=== PATIENT | male | born 1955 | race Caucasian/White ===

== ENCOUNTER → 2016-09-11 | Outpatient (CLI) | payer BC ==
[2016-09-11 18:13] LABS: AST/SGOT 17 U/L (15-37); BLOOD UREA NITROGEN 19 mg/dl (7-18); BUN/CREATININE RATIO 22.4 (10-20); CALCIUM 9.2 mg/dl (8.5-10.1); CARBON DIOXIDE 25 mmol/L (21-32); CHLORIDE 106 mmol/L (98-107); CHOLESTEROL 181 mg/dl (0-200); CREATININE 0.83 mg/dl (0.60-1.40); GLUCOSE 105 mg/dl (70-99); POTASSIUM 3.9 mmol/L (3.5-5.1); SODIUM 141 mmol/L (136-145)
[2016-09-11 18:18] LABS: ALT/SGPT 33 U/L (12-78); CHOLESTEROL/HDL RATIO 3.8; HDL CHOLESTEROL 48 mg/dl; LDL CHOLESTEROL CALCULATED 98 mg/dl; TRIGLYCERIDES 174 mg/dl (0-150); VERY LOW DENSITY LIPOPROT CALC 35 mg/dl
[2016-09-12 06:25] LABS: ESTIMATED AVERAGE GLUCOSE 126 mg/dl; HA1C FLAG Normal (Normal)
== END | disposition home or self-care (01) ==
LOC: C.LABMFLN 13:49
PROVIDERS: ATTEND Family Medicine
DX: E11.40 Type 2 diabetes mellitus with diabetic neuropathy, unspecified (principal); Z12.5 Encounter for screening for malignant neoplasm of prostate; I10 Essential (primary) hypertension; E78.00 Pure hypercholesterolemia, unspecified

== ENCOUNTER → 2016-12-26 | Outpatient (CLI) | payer BC ==
[2016-12-26 13:48] LABS: ESTIMATED AVERAGE GLUCOSE 128 mg/dl; HA1C FLAG Normal (Normal)
== END | disposition home or self-care (01) ==
LOC: C.LABMFLN 09:42
PROVIDERS: ATTEND Family Medicine
DX: E11.40 Type 2 diabetes mellitus with diabetic neuropathy, unspecified (principal)

== ENCOUNTER → 2017-03-28 | Outpatient (CLI) | payer BC ==
[2017-03-28 13:22] LABS: ALT/SGPT 36 U/L (12-78); AST/SGOT 22 U/L (15-37); BLOOD UREA NITROGEN 16 mg/dl (7-18); BUN/CREATININE RATIO 15.7 (10-20); CALCIUM 9.1 mg/dl (8.5-10.1); CARBON DIOXIDE 29 mmol/L (21-32); CHLORIDE 104 mmol/L (98-107); GLUCOSE 133 mg/dl (70-99); POTASSIUM 4.2 mmol/L (3.5-5.1); SODIUM 139 mmol/L (136-145)
[2017-03-28 13:23] LABS: ESTIMATED AVERAGE GLUCOSE 134 mg/dl; HA1C FLAG Normal (Normal)
[2017-03-28 13:25] LABS: CHOLESTEROL 193 mg/dl (0-200); CHOLESTEROL/HDL RATIO 4.3; HDL CHOLESTEROL 45 mg/dl; LDL CHOLESTEROL CALCULATED 99 mg/dl; TRIGLYCERIDES 245 mg/dl (0-150); VERY LOW DENSITY LIPOPROT CALC 49 mg/dl
== END | disposition home or self-care (01) ==
LOC: C.LABMFLN 09:11
PROVIDERS: ATTEND Family Medicine
DX: I10 Essential (primary) hypertension (principal); E78.00 Pure hypercholesterolemia, unspecified; E11.40 Type 2 diabetes mellitus with diabetic neuropathy, unspecified

== ENCOUNTER → 2017-04-16 | Outpatient (CLI) | payer BC | END | disposition home or self-care (01) | LOC: C.LABMFLN 11:34 | PROVIDERS: ATTEND Family Medicine | DX: Z68.36 Body mass index [BMI] 36.0-36.9, adult (principal) ==

== ENCOUNTER → 2017-07-10 | Outpatient (CLI) | payer BC ==
[2017-07-10 17:59] LABS: ALT/SGPT 51 U/L (12-78); BLOOD UREA NITROGEN 16 mg/dl (7-18); CALCIUM 9.6 mg/dl (8.5-10.1); CARBON DIOXIDE 29 mmol/L (21-32); CHLORIDE 105 mmol/L (98-107); CHOLESTEROL 165 mg/dl (0-200); CREATININE 0.98 mg/dl (0.60-1.40); GLUCOSE 121 mg/dl (70-99); POTASSIUM 4.2 mmol/L (3.5-5.1); SODIUM 139 mmol/L (136-145)
[2017-07-10 18:02] LABS: ALB/GLOB RATIO 1.1 (0.9-2); ALKALINE PHOSPHATASE 46 U/L (45-117); AST/SGOT 20 U/L (15-37); CHOLESTEROL/HDL RATIO 3.3; HDL CHOLESTEROL 50 mg/dl; LDL CHOLESTEROL CALCULATED 91 mg/dl; TRIGLYCERIDES 122 mg/dl (0-150); VERY LOW DENSITY LIPOPROT CALC 24 mg/dl
[2017-07-11 07:52] LABS: ESTIMATED AVERAGE GLUCOSE 128 mg/dl; HA1C FLAG Normal (Normal)
== END | disposition home or self-care (01) ==
LOC: C.LABMFLN 13:36
PROVIDERS: ATTEND Family Medicine
DX: Z00.00 Encounter for general adult medical examination without abnormal findings (principal); I10 Essential (primary) hypertension; E78.00 Pure hypercholesterolemia, unspecified; E11.40 Type 2 diabetes mellitus with diabetic neuropathy, unspecified

== ENCOUNTER → 2017-07-11 | Outpatient (CLI) | payer BC ==
[2017-07-11 16:14] LABS: RATIO 3.9 mcg/mg (0-30.0)
== END | disposition home or self-care (01) ==
LOC: C.LABMFLN 10:05
PROVIDERS: ATTEND Family Medicine
DX: Z00.00 Encounter for general adult medical examination without abnormal findings (principal); I10 Essential (primary) hypertension; E78.00 Pure hypercholesterolemia, unspecified; E11.40 Type 2 diabetes mellitus with diabetic neuropathy, unspecified

== ENCOUNTER → 2017-10-17 | Outpatient (CLI) | payer BC ==
[2017-10-18 06:43] LABS: HEMOGLOBIN A1C 6.2 % (4.5-5.6)
== END | disposition home or self-care (01) ==
LOC: C.LABMFLN 10:50
PROVIDERS: ATTEND Family Medicine
DX: E11.40 Type 2 diabetes mellitus with diabetic neuropathy, unspecified (principal)

== ENCOUNTER 2021-06-21 09:21 | Inpatient (IN) ==
--- NOTE | 2021-06-17 15:07 | Anesthesiology Consultation ---
Date of Service June 17, 2021 Assessment & Plan (1) Encounter for pre-operative examination: - COVID screening: Per assessment on 06/15: Travel screen negative, no known COVID-19 positive contacts or current COVID-19 related symptoms. Patient vaccin ated. Preop Covid test 06/17 ([place]) is pending. - Check [facility]G AM DOS Chart Review Chart Review: Acceptable Risk for Surgery and Patient NOT seen in Pre Admission Testing History Surgery Operation Date: 06/21/21 11:10 Proposed Procedures p Laparoscopic Robotic Assisted Radical Retropubic Prostatectomy, Possible Open, Possible Pelvic Lymph Node Dissection, Possible Suprapubic Tube Placement - Neto Davenport MD Height/Weight Height: 5 ft 11.5 in Weight: 97.976 kg Allergies Allergy/AdvReac Type Severity Reaction Status Date / Time enalaprilat [From Vasotec] Allergy Severe Cough, Verified 06/21/21 09:50 hives ampicillin Allergy Intermediate Body hives Verified 06/21/21 09:50 atorvastatin [From Lipitor] AdvReac Mild Elevated Verified 06/21/21 09:50 CPK simvastatin [From Zocor] AdvReac Mild Muscle Pain Verified 06/21/21 09:50 Medications Home Medications Medication Instructions Recorded Confirmed Last Taken lancets 28 gauge (FreeStyle #25 ea 02/18/19 05/23/21 Unknown Lancets) magnesium oxide 400 mg PO TID cap 02/18/19 06/15/21 06/20/21 08:00 kgijwryg-oob-syfuz acid 300 1 tab PO QAM 02/18/19 06/21/21 06/20/21 08:00 mcg-lycopene 600 mcg-lutein 300 mcg tablet (Centrum Silver Men) cholecalciferol (vitamin D3) 50 2,000 units PO QPM 08/04/19 06/21/21 06/20/21 08:00 mcg (2,000 unit) chewable tablet ondansetron 8 mg disintegrating 8 mg PO TID PRN #90 tab 08/04/19 06/21/21 Unknown tablet hyoscyamine sulfate 0.125 mg 0.125 mg PO QID PRN #20 tab 05/13/21 06/21/21 06/20/21 08:00 disintegrating tablet potassium chloride 10 mEq 10 meq PO BID #360 tab 05/13/21 06/15/21 06/20/21 20:00 tablet,extended release amlodipine 2.5 mg tablet 2.5 mg PO QAM tab 05/23/21 06/21/21 06/21/21 08:30 Marijuana Card 1 inh INHALATION TID PRN 06/15/21 06/15/21 Unknown escitalopram oxalate 5 mg tablet 5 mg PO QAM 06/15/21 06/21/21 06/21/21 08:30 furosemide 20 mg tablet 20 mg PO QAM 06/15/21 06/21/21 06/20/21 08:00 losartan 100 mg tablet 100 mg PO QAM 06/15/21 06/21/21 06/20/21 08:00 lovastatin 40 mg tablet 80 mg PO HS 06/15/21 06/15/21 06/20/21 20:00 omeprazole 40 mg capsule,delayed 80 mg PO BID 06/15/21 06/21/21 06/21/21 08:30 release sucralfate 1 gram tablet 1 g PO QAM 06/15/21 06/21/21 06/20/21 20:00 trazodone 50 mg tablet 100 mg PO HS 06/15/21 06/15/21 Unknown Active Medications Generic Name Dose Route Start Last Admin Trade Name Freq PRN Reason Stop Dose Admin Heparin Sodium (Porcine) 5,000 units 06/21/21 06:00 06/21/21 10:10 Heparin Sod 5,000 Unit/0.5 Ml Vial SC 06/21/21 18:00 5,000 units PREOP ISSA Administration Lactated Ringer's 1,000 mls @ 15 mls/hr 06/21/21 06:00 06/21/21 10:09 Lr IV 06/22/21 05:59 15 mls/hr .Q24H ISSA Administration Lactated Ringer's 1,000 mls @ 15 mls/hr 06/21/21 06:00 06/21/21 10:10 Lr IV 06/21/21 18:00 Not Given .Q24H ISSA Past Medical History Medical History Adjustment disorder with depressed mood Back pain Benign essential hypertension Benign prostatic hyperplasia Carpal tunnel syndrome Cervicalgia Chronic GERD Controlled Chronic headaches Controlled type 2 diabetes mellitus with diabetic neuropathy Diet controlled Hypercholesterolemia Prostate cancer Past Family History Family History Father Type 2 diabetes mellitus Renal failure Coronary heart disease Colorectal cancer Myocardial infarction Mother Osteoarthritis Denies family history of Ovarian cancer Prostate cancer Breast cancer Past Surgical History Surgical History H/O colonoscopy 2020 H/O oral surgery H/O uvulectomy H/O: vasectomy History of carpal tunnel surgery R/L History of decompression of ulnar nerve Right Hx of cholecystectomy Status post tendon reattachment LLE Social History Smoking Status: Former smoker tobacco type: pipe and cigars Do You Dip or Chew Tobacco: No Smoking End Date: Intermittent cigarette use, Quit pipe 40 years ago Hx Alcohol Use: Yes Alcohol type: beer alcohol intake frequency: holidays/special occasions only Hx Substance Use: Yes substance use type: marijuana (Medical marijuana (inhalation) TID PRN ) Physical Exam Vital Signs Last Vital Signs Temp 37.2 C 06/21/21 09:41 Pulse 84 06/21/21 09:41 Resp 20 06/21/21 09:41 BP 147/91 H 06/21/21 09:41 Pulse Ox 96 06/21/21 09:41 Testing Laboratory Results 06/21/21 10:03 POC Glucose 122 H 04/30/21 WBC 6.61 H/H 12.8/37.9 PLATELETS 210 05/13/21 SODIUM 142 POTASSIUM 4.2 CHLORIDE 104 CO2 28 BUN 19 CREATININE 1.2 GLUCOSE 87
[~2021-06-21 09:21] MED LIST: HEPARIN SOD 5,000 UNIT/0.5 ML VIAL SC SCH; LACTATED RINGER'S 1,000 ML IV SCH; LR 15ML/HR IV SCH; ceFAZolin 2000MG 2,000 MG/15 ML SYR IV SCH
[2021-06-21] MEDS ORDERED: MIDAZOLAM HCL 1 MG/ML 2ML VIAL ONE (10:16)
[2021-06-21] MEDS ORDERED: fentaNYL citrate 100 MCG/2 ML VIAL ONE ×2 (10:16→13:46)
--- NOTE | 2021-06-21 10:56 | History & Physical Bridge Note ---
Date of Service June 21, 2021 History & Physical Bridge Note I have examined the patient, reviewed the History & Physical and in the interval since the performance of the History & Physical I have noted the following changes of clinical significance: no changes noted
[2021-06-21] MEDS ORDERED: KETOROLAC 30 MG/ML VIAL IV PRN (11:01)
[2021-06-21] MEDS ORDERED: ONDANSETRON INJ 2 MG/ML 2 ML VIAL IV PRN (11:01)
[2021-06-21] MEDS ORDERED: HYDROmorphone INJ 1 MG/ML SYRINGE IV PRN (11:01)
[2021-06-21] MEDS ORDERED: LABETALOL HCL IV 5 MG/ML 20ML IV PRN (11:01)
[2021-06-21] MEDS ORDERED: BUPIVACAINE 0.5 % 5 MG/1 ML MPF 30ML VIAL ONE (11:01)
[2021-06-21] MEDS ORDERED: ATROPINE SULFATE 0.1 MG/ML 10ML SYR IV PRN (11:01)
[2021-06-21] MEDS ORDERED: BELLADONNA/OPIUM SUPP 60 MG SUPP PR ONE ×2 (11:49→11:54)
[2021-06-21] MEDS ORDERED: HYDROmorphone INJ 2 MG/ML SYR/VIAL ONE (11:53)
[2021-06-21] MEDS ORDERED: ePHEDrine sulfate 50 MG/ML SYR ONE (11:54)
[2021-06-21] MEDS ORDERED: ONDANSETRON INJ 2 MG/ML 2 ML VIAL ONE (11:54)
[2021-06-21] MEDS ORDERED: DEXAMETHASONE SOD INJ 4 MG/ML VIAL ONE (11:54)
[2021-06-21] MEDS ORDERED: PHENYLEPHRINE 100MCG/ML 5ML SYR ONE (11:54)
[2021-06-21] MEDS ORDERED: ROCURONIUM BROMIDE 10 MG/ML 5 ML VIAL IV ONE (11:54)
[2021-06-21] MEDS ORDERED: PROPOFOL IV EMULSION 10 MG/ML 20 ML VIAL IV ONE ×3 (12:25→13:47)
[2021-06-21] MEDS ORDERED: LABETALOL HCL IV 5 MG/ML 20ML IV ONE (12:33)
[2021-06-21] MEDS ORDERED: LIDOCAINE 2% 2 ML VIAL/AMP(20MG/ML) INFIL ONE (13:48)
[2021-06-21] MEDS ORDERED: LARYING-O-JET KIT (LTA) ONE (13:48)
[2021-06-21] MEDS ORDERED: FLOSEAL HEMOSTATIC MATRIX 10ML TOP ONE (14:47)
[2021-06-21] MEDS ORDERED: NEOSTIGMINE METHYLSULFATE 1 MG/ML 10ML VIAL ONE (14:52)
[2021-06-21] MEDS ORDERED: GLYCOPYRROLATE 0.2 MG/ML VIAL ONE (14:52)
--- NOTE | 2021-06-21 15:18 | Operative Report ---
[facility] Post Operative Report Pre & Post Diagnosis Operation Date: 06/21/21 11:10 Pre-Op Diagnosis: Prostate Cancer Post-Op Diagnosis: Prostate Cancer I identified the patient and participated in the time-out.: Yes Procedure Operation Date: 06/21/21 11:10 Actual Procedures p Laparoscopic Robotic Assisted Radical Retropubic Prostatectomy, Pelvic Lymph Node Dissection(Not Applicable) - Neto Davenport MD Surgeon Lenny Davenport MD Junior Database Administrator Denice Viveros Estimated Blood Loss 100 Findings Consistent with Post-Op Diagnosis Specimens 1. Periprostatic fat 2. Left pelvic lymph nodes 3. Right pelvic lymph nodes 4. Prostate and seminal vesicles Description of Procedure The patient was identified in the preoperative holding area, appropriate informed consents were reviewed and completed, and he was transported to the operating suite. Subcutaneous heparin was administered in the pre-operative holding area. Upon arrival in the operating suite, he received appropriate antibiotics and general anesthesia. He was positioned in dorsal lithotomy, a B&O suppository was inserted after digital rectal exam, and he was prepped and draped in standard fashion. A Kauffman catheter was inserted in the sterile field. A Veress needle was passed per umbilicus with uniform insufflation of the abdomen to 15mmHg. He was placed in steep Trendelenburg position. A periumbilical incision was then made to accommodate a 12mm Visiport with 10mm 0degree laparoscope. Inspection of the abdomen was carried out, and there was no evidence of traumatic entry or injury secondary to the Veress needle. After confirming a clear anterior abdominal wall, ports were subsequently placed in standard robotic prostatectomy fashion without incident. To begin the robotic portion of the case, the left lateral aspect of the sigmoid was mobilized off of the left pelvic side wall to allow the pouch of Sukhwinder to be appropriately visualized. I then made an incision in the pouch of Sukhwinder, overlying the seminal vesicles. Both SVs as well as the ampullae of the vasa were entirely dissected, with the vasa transected 3cm from the prostate. The medial umbilical ligaments were then controlled with bipolar electrocautery just inferior to the umbilicus. Following cauterization, they were divided utilizing monopolar cautery. A peritoneal incision was carried from this location to the medial aspect of the internal inguinal rings bilaterally with care to avoid opening through the ring. This incision was concluded when the vas deferens was reached. Dissection of the bladder and prostate off of the posterior aspect of the pubic arch was completed allowing full visualization of the prostate. The fat overlying the prostate was removed en bloc and passed off the table as a specimen labeled "periprostatic fat". The endopelvic fascia was cleared during this portion of the procedure, and subsequently opened - first on the right and then the left. The incision through the endopelvic fascia began near the prostate-bladder junction and was carried to the apex with extreme care to preserve all lateral levator musculature as well as the periurethral musculature and sphincter complex. I additionally preserved the puboprostatic ligaments. I then controlled the DVC with a 3-0 V-lock suture in overlapping/figure of 8 fashion. The lymph node dissection was then conducted. External iliac vessels were identified on the pelvic side wall. The packet of fat and lymphatic tissue that resides just under the iliac vein was elevated and off of the vein with a split and roll technique. The packet was dissected laterally to the circumflex vein and distally to the obturator nerve which was preserved. The proximal aspect of the packet was carried towards the bifurcation of the iliac vessels. A combination of monopolar and bipolar cautery were used to assist with control. After completing the dissection on both sides, the packets were collected and passed off of the table as specimens labeled "pelvic lymph nodes". My attention then returned to the prostate, with identification of the bladder neck aided by gentle traction on the Kauffman catheter and lateral to medial pressure at the presumed level of the bladder neck with the robotic instruments. An anterior cystotomy was made, the Kauffman balloon deflated and the catheter guided through the incision to allow anterior retraction. I attempted to preserve maximal bladder neck musculature as I circumferentially dissected around the bladder neck. After incision through the posterior aspect of the mucosa, the dissection was carried through detrusor muscle until the bilateral ampullae of the vasa were identified. The previously dissected vasa and SVs were brought through the incision and used to elevated the prostate anteriorly. A posterior plane behind the prostate was then developed - splitting Denonvilliers's fascia. This dissection was carried as far as possible towards the apex as well as far as possible laterally. An incision in the lateral prostatic fascia was then made bilaterally to facilitate control of the vascular pedicles and preservation of the nerve bundles. Vasculature running along the posterior/lateral aspect of the prostate was preserved as well as the tissue containing the nerves. The pedicles were then controlled with a series of Weck clips. The apical attachments of the prostate were remaining at that stage. The DVC was divided after control with bipolar cautery over the prostate. Continuous inspection from anterior and lateral views allowed me to closely follow the apical contour of the prostate and maximally preserve urethral length and tissue. The prostate was entirely freed at that point, and collected in an EndoCatch bag before being moved out of the field of vision. Hemostasis was confirmed and anastomosis of the bladder and urethra was completed utilizing a double armed V- Lock stitch. A new Kauffman catheter was inserted and the anastomosis tested with irrigation. There was no evidence of leak. A nicole style stitch was placed bilaterally to functionally marsupialize the area of the lymph node dissection. The robot was undocked, the specimen extracted through expansion of the madina- umbilical camera port. The fascia was closed with a series of 0-PDS figure of 8 stitches. The right assistant purchasing manager port was closed in two layers - with a figure of 8 0-Vicryl to reapproximate the fascia followed by 4-0 Monocryl to close the skin. Monocryl was used to close all other skin incisions. All wounds were dressed with Dermabond. The case was concluded and the patient taken to the PACU in stable condition. Denice Viveros assisted from incision to closure. I attest to the content of the Intraoperative Record and any orders documented therein. Any exceptions are noted below.
--- NOTE | 2021-06-21 16:01 | Anesthesiology Progress Note ---
Date of Service June 21, 2021 Anesthesia Post Procedure Vital Signs Vital Signs: Temp Pulse Pulse Resp BP Pulse Ox 06/21/21 15:55 68 15 126/80 96 06/21/21 15:45 65 16 138/86 100 06/21/21 15:35 66 20 137/90 100 06/21/21 15:25 66 17 131/86 99 06/21/21 15:17 36.7 C 65 21 188/96 H 100 06/21/21 09:41 37.2 C 84 20 147/91 H 96 Pain Intensity Abdomen: Pain Intensity: 3 Transfer of Care Handoff Completed per policy Notes Mental Status: alert / awake / arousable Patient Amnestic to Procedure: Yes Nausea / Vomiting: adequately controlled Pain: adequately controlled Airway Patency, RR, SpO2: stable & adequate BP & HR: stable & adequate Hydration State: stable & adequate Anesthetic Complications: no major complications apparent
[2021-06-21] MEDS: LACTATED RINGER'S 1,000 ML IV SCH (16:30)
[2021-06-21] MEDS ORDERED: ACETAMINOPHEN 325 MG TAB PO PRN (16:48)
[2021-06-21] MEDS ORDERED: oxyCODONE HCL IR 5 MG TAB (IMMEDIATE RELEASE) PO PRN (16:48)
[2021-06-21] MEDS ORDERED: PHARMACY GLYCEMIC MGMT CONSULT PRN (16:48)
[2021-06-21] MEDS ORDERED: MoRPHine SULFATE 2 MG/ML CARP IV PRN ×2 (16:48→18:15)
[2021-06-21] MEDS ORDERED: MoRPHine SULFATE 4 MG/ML 1 ML CARP\\VIAL IV PRN (16:48)
[2021-06-21 16:54] LABS: Basophils # (auto) 0.02 K/uL (0-0.2); Basophils % (auto) 0.2 %; Eosinophils # (auto) 0.01 K/uL (0-0.5); Eosinophils % (auto) 0.1 %; Hemoglobin 14.2 g/dL (14.0-18.0); Immature Granulocytes # (auto) 0.01 K/uL (0.00-0.02); Immature Granulocytes % (auto) 0.1 %; Lymphocytes # (auto) 0.83 K/uL (1.2-3.4); Lymphocytes % (auto) 6.8 %; Mean Corpuscular Hemoglobin 32.9 pg (25-34); Mean Corpuscular Volume 94.9 fL (80-100); Mean Platelet Volume 8.9 fL (7.4-10.4); Monocytes # (auto) 0.11 K/uL (0.11-0.59); Monocytes % (auto) 0.9 %; Neutrophils # (auto) 11.29 K/uL (1.4-6.5); Neutrophils % (auto) 91.9 %; Platelet Count 276 K/uL (130-400); RDW Coefficient of Variation 12.5 % (11.5-14.5); Red Blood Count 4.32 M/uL (4.7-6.1); White Blood Count 12.27 K/uL (4.8-10.8)
[2021-06-21 16:56] LABS: Mean Corpuscular Hgb Conc 34.6 g/dL (32-36)
[2021-06-21 17:14] LABS: BUN Creatinine Ratio 15.2 (10-20); Calcium 9.1 mg/dl (8.5-10.1); Creatinine Clr Calc Pharmacy 82.3 ml/min; Est GFR (African American) 85.1 ml/min; Est GFR (Non-African American) 73.4 ml/min; Potassium 3.7 mmol/L (3.5-5.1)
[2021-06-21] MEDS ORDERED: HYOSCYAMINE SULFATE 0.125 MG TAB PO PRN (19:14)
[2021-06-21] MEDS: oxyCODONE HCL IR 5 MG TAB (IMMEDIATE RELEASE) PO PRN (19:47)
[2021-06-21] MEDS ORDERED: GLUCOSE 10 TABS/TUBE PO PRN (20:15)
[2021-06-21] MEDS ORDERED: DEXTROSE 50% 50 ML SYRINGE IV PRN (20:15)
[2021-06-21] MEDS ORDERED: GLUCAGON FOR INJ 1 MG VIAL IM PRN (20:15)
[2021-06-21] MEDS ORDERED: GLUCOSE 40% GEL 15 GM TUBE PO PRN (20:15)
[2021-06-21] MEDS ORDERED: CARBOHYDRATES FOR HYPOGLYCEMIA PO PRN (20:15)
[2021-06-21] MEDS: PANTOprazole 40 MG TAB PO SCH (21:00)
[2021-06-21] MEDS: ceFAZolin 2000MG 2,000 MG/15 ML SYR IV SCH (21:02)
[2021-06-21] MEDS: traZODone HCL 100 MG TAB PO SCH (21:04)
[2021-06-21] MEDS: POTASSIUM CHLORIDE 10 MEQ TABCR PO SCH (21:04)
[2021-06-21] MEDS: MAGNESIUM OXIDE 400 MG TAB PO SCH (21:05)
[2021-06-21] MEDS: LOVASTATIN 20 MG TAB PO SCH (21:05)
[2021-06-21] MEDS: INSULIN ASPART 100 UNITS/ML 3 ML PEN SC SCH (21:08)
[2021-06-21] MEDS: ONDANSETRON INJ 2 MG/ML 2 ML VIAL IV PRN (21:17)
[2021-06-21] MEDS: HEPARIN SOD 5,000 UNIT/0.5 ML VIAL SQ SCH (21:27)
[2021-06-22] MEDS: LACTATED RINGER'S 1,000 ML IV SCH (00:07)
[2021-06-22] MEDS ORDERED: INSULIN ASPART 100 UNITS/ML 3 ML PEN SC SCH (02:00)
[2021-06-22] MEDS: ceFAZolin 2000MG 2,000 MG/15 ML SYR IV SCH (03:36)
[2021-06-22] MEDS: HEPARIN SOD 5,000 UNIT/0.5 ML VIAL SQ SCH ×2 (09:13→20:53)
[2021-06-22] MEDS: LOSARTAN POTASSIUM 50 MG TAB PO SCH (09:14)
[2021-06-22] MEDS: MAGNESIUM OXIDE 400 MG TAB PO SCH ×3 (09:14→20:55)
[2021-06-22] MEDS: PANTOprazole 40 MG TAB PO SCH ×2 (09:14→20:54)
[2021-06-22] MEDS: SUCRALFATE 1 GM TAB PO SCH (09:14)
[2021-06-22] MEDS: ESCITALOPRAM OXALATE 10 MG TAB PO SCH (09:15)
[2021-06-22] MEDS: CEROVITE ADV FORMULA TAB PO SCH (09:15)
[2021-06-22] MEDS: POTASSIUM CHLORIDE 10 MEQ TABCR PO SCH ×2 (09:15→20:54)
[2021-06-22] MEDS: FUROSEMIDE 20 MG TAB PO SCH (09:15)
[2021-06-22] MEDS: amLODIPine BESYLATE 5 MG TAB PO SCH (09:16)
[2021-06-22] MEDS: INSULIN ASPART 100 UNITS/ML 3 ML PEN SC SCH ×4 (09:18→21:08)
[2021-06-22 09:19] LABS: Basophils # (auto) 0.02 K/uL (0-0.2); Basophils % (auto) 0.2 %; Eosinophils # (auto) 0.02 K/uL (0-0.5); Eosinophils % (auto) 0.2 %; Hematocrit (blood only) 40.1 % (42-52); Hemoglobin 13.5 g/dL (14.0-18.0); Immature Granulocytes # (auto) 0.02 K/uL (0.00-0.02); Immature Granulocytes % (auto) 0.2 %; Lymphocytes # (auto) 0.71 K/uL (1.2-3.4); Lymphocytes % (auto) 6.3 %; Mean Corpuscular Hgb Conc 33.7 g/dL (32-36); Mean Platelet Volume 9.2 fL (7.4-10.4); Monocytes # (auto) 1.69 K/uL (0.11-0.59); Neutrophils # (auto) 8.84 K/uL (1.4-6.5); Neutrophils % (auto) 78.1 %; Platelet Count 269 K/uL (130-400); RDW Coefficient of Variation 12.6 % (11.5-14.5); RDW Standard Deviation 43.8 fL (36.4-46.3); Red Blood Count 4.22 M/uL (4.7-6.1)
[2021-06-22 09:47] LABS: BUN Creatinine Ratio 13.4 (10-20); Calcium 9.2 mg/dl (8.5-10.1); Creatinine Clr Calc Pharmacy 90.1 ml/min; Est GFR (African American) 94.9 ml/min; Est GFR (Non-African American) 81.9 ml/min; Potassium 3.5 mmol/L (3.5-5.1)
--- NOTE | 2021-06-22 09:52 | Pharmacy Report ---
Pharmacy Glycemic Short Note 2 - Date of Service June 22, 2021 - Glycemic Short BSG Results (Last 24 hours): 06/21/21 06/21/21 06/21/21 10:03 15:29 16:38 Glucose 175 H POC Glucose 122 H 151 H 06/21/21 06/22/21 06/22/21 20:58 08:01 08:21 Glucose 136 H POC Glucose 141 H 132 H OUTPATIENT ANTIDIABETIC REGIMEN: * none * A1c = 6% (03/01/21) ASSESSMENT: * Jose is a 66 yo T2DM POD #1 s/p p Laparoscopic Robotic Assisted Radical Retropubic Prostatectomy * He has demonstrated excellent glycemic control with little to no insulin * Currently ordered Novolog CF/CR based on weight and stress of 2. Will continue for now but may need to loosen this carb ratio. PLAN FOR INPATIENT GLYCEMIC CONTROL: * Hold outpatient oral diabetes medications * Basal insulin * none * Bolus insulin * NovoLog per scale ACHS or Q6hrs while NPO * Goal Range: Low 110 mg/dL - High 140 mg/dL * Correction Factor: 25 mg/dL/unit * Nutritional / Prandial insulin per carb ratio of 1 unit per 8 grams CHO consumed PLAN FOR DISCHARGE: * A1c adequately controlled with out medication therapy
--- NOTE | 2021-06-22 12:00 | Urology Progress Note ---
Date of Service June 22, 2021 Assessment & Plan (1) Prostate cancer: Plan: Postop day #1 status post robotic prostatectomy Doing very well overall Plan to continue ambulation advance diet this morning, likely discharge home this afternoon if he continues to progress appropriately Admission and Anticipated Discharge Date Admission Date: June 21, 2021 Subjective No major issues overnight He reports that he feels well and has minimal pain this morning Physical Exam Physical Exam: Incisions appropriate, urine clear Results & Data ([facility]) Vital Signs (Past 12 Hours) Vital Signs Temp Pulse Resp BP Pulse Ox 06/22/21 11:55 37.2 C 83 16 121/75 97 06/22/21 07:42 36.8 C 76 16 131/72 95 PG Care Time/CCT Total # of Minutes Spent Total Time Spent with Patient: Total time spent is greater than 50% in coordination of care (as documented) at patient's floor/unit and/or counseling patient: Coding Level of Care Code 44538 Subseq Hosp Care Lvl 2 Diagnoses Prostate cancer C61
--- NOTE | 2021-06-22 12:28 | Discharge Summary ---
Date of Service June 22, 2021 Admission HPI Per Admitting Provider See H&P Admission Exam Per Admitting Provider See H&P Principal Diagnosis Prostate Cancer Discharge Exam Constitutional well developed and well nourished; no acute distress and not ill appearing Respiratory normal respiratory effort and able to speak in complete sentences; no respiratory distress and no audible wheezes Gastrointestinal (Abdomen) Inspection/Auscultation: abdomen normal to inspection; abdomen not distended Percussion/Palpation: abdomen soft; no guarding Skin Incisions appropriate, well-approximated without erythema, warmth, or drainage. Psychiatric Orientation: alert, oriented x 3 and cooperative Affect: euthymic affect Genitourinary [place] catheter intact, patent, draining clear yellow urine. Discharge Data Allergies Allergy/AdvReac Type Severity Reaction Status Date / Time enalaprilat [From Vasotec] Allergy Severe Cough, Verified 06/21/21 09:50 hives ampicillin Allergy Intermediate Body hives Verified 06/21/21 09:50 atorvastatin [From Lipitor] AdvReac Mild Elevated Verified 06/21/21 09:50 CPK simvastatin [From Zocor] AdvReac Mild Muscle Pain Verified 06/21/21 09:50 Procedures Performed Operation Date: 06/21/21 11:10 Actual Procedures p Laparoscopic Robotic Assisted Radical Retropubic Prostatectomy, Pelvic Lymph Node Dissection(Not Applicable) - Neto Davenport MD Hospital Course (1) Prostate cancer: Patient admitted status post robotic laparoscopic-assisted radical retropubic prostatectomy with bilateral pelvic lymph node dissection on 06/21/[address] Davenport. No complications post procedure. He was seen POD#1, clinically progressing however had some pain, nausea, and decreased appetite. Patient was seen POD#2 with significant improvement in his symptoms. Vital signs and post-op labs appropriate and as expected. Discharged home in stable condition POD #2, home with cub[place] catheter. Total Time Total Time Spent Total Time Spent (In Minutes): 10 Discharge Plan Discharge Items Patient Disposition: Home - Self-Care Reason For Visit: Prostate Cancer Discharge Diagnosis: prostate cancer Condition on Discharge: Good Activity: Per Instructions section Lifting: No more than 25 pounds Bathing Comment: No tub baths or soaking, okay to shower tomorrow Sexual Activity: Wait until after follow-up appointment Exercise/Sports: Wait until after follow-up appointment Driving/Machine Use: Do not drive while taking narcotic pain medication Non-emergency contact: Surgeon and Urologist Call non-emergency contact if: your pain is not controlled, your temperature is above 101, your wound has increased redness, your wound has increased drainage and your wound pain has increased Follow-up/Referrals: Neto Davenport MD [Physician] - 07/04/21 2:00 pm Hans Alston MD [Primary Care Provider] - [facility],Nurse [FAKE FOR SCHEDULES] - 06/27/21 9:30 am Diet: Carb Consistent or DM2 Addtl Attending Provider Instructions: Please take all medications as prescribed and keep all follow-ups as scheduled. Please call our office at [phone] with any questions, concerns or need to reschedule appointments for any reason. We are happy to assist you We have sent an antibiotic to your pharmacy of choice. Please begin antibiotic as prescribed the day BEFORE your scheduled voiding trial at [facility]. Please continue antibiotic every 12 hours through the day AFTER your voiding trial. Activity: We recommend having someone with you for the first few days after surgery to help care for you. For the first 2 weeks after surgery, we would like you to get up and walk around your house. However, we recommend limit physical activity that would increase your heart rate. This will allow your body to rest and heal. Take naps if you feel tired. Don't lift anything heavier than 10 pounds, mow the law or ride a bicycle until your follow-up appointment. Please avoid long car rides. Home Care: Unless directed otherwise, drink 6 to 8 glasses of water a day (enough to keep your urine light colored). This will also help keep a healthy flow of urine. We recommend using a stool softener for the first two weeks to avoid constipation. [place] Catheter or Suprapubic Catheter care: Keep the catheter well secured with either a leg back or leg strap with large bag. Empty your bag when it's about half full. You may notice some blood in the bag. This is normal after surgery and while the catheter is in place. Use mild soap (such as Dove or Dial) and water to wash the catheter and the head of your penis daily, or more frequently if needed. Return to your normal diet, we encourage good protein intake to promote healing. You may shower as normal. Please avoid tub baths or soaking until catheter removed and incisions well healed. Wearing sweat pants while you have the catheter is recommended, they will be more comfortable. Follow-up Your follow up appointments for having your catheter removed, and follow up with your physician should already be scheduled. If you have any questions regarding this, please contact our office. Your final pathology report will be discussed at your physician follow-up appointment. Call [facility] at [phone] right away if you have any of the following: Chest pain or trouble breathing (call [phone] or go to the hospital) Fever of 101F or higher, uncontrolled vomiting Heavy bleeding, clots, or bright red blood from the catheter Catheter that falls out or stops draining Foul-smelling discharge from your catheter Redness, swelling, warmth, or increased pain at your incision site Drainage, pus, or bleeding from your incision Pending Studies at Discharge: Yes Studies:: Pathology Stand-Alone Forms: [facility], Smoking Cessation Medications and DC Order Prescriptions: New ciprofloxacin HCl 500 mg tablet 500 mg PO BID 3 Days Qty: 6 RF: 0 oxycodone-acetaminophen [Percocet] 5-325 mg tablet 1 tab PO TID PRN (Reason: pain) Qty: 14 RF: 0 docusate sodium [Colace] 100 mg capsule 100 mg PO BID Qty: 60 RF: 0 Continued ondansetron 8 mg tablet,disintegrating 8 mg PO TID PRN (Reason: nausea and vomiting) Qty: 90 RF: 0 potassium chloride 10 mEq tablet extended release 10 meq PO BID Qty: 360 RF: 1 hyoscyamine sulfate 0.125 mg tablet,disintegrating 0.125 mg PO QID PRN (Reason: severe abd pain) Qty: 20 RF: 5 cholecalciferol (vitamin D3) 2,000 unit tablet,chewable 2,000 units PO QPM RF: 0 amlodipine 2.5 mg tablet 2.5 mg PO QAM RF: 0 Centrum Silver Men 300-600-300 mcg tablet 1 tab PO QAM RF: 0 magnesium oxide 400 mg magnesium capsule 400 mg PO TID RF: 0 (DME) lancets [FreeStyle Lancets] 28 gauge misc See Dose Instructions .ROUTE .MEDSUPPLY Qty: 25 RF: 0 furosemide 20 mg tablet 20 mg PO QAM RF: 0 losartan 100 mg tablet 100 mg PO QAM RF: 0 escitalopram oxalate 5 mg tablet 5 mg PO QAM RF: 0 trazodone 50 mg tablet 100 mg PO HS RF: 0 sucralfate 1 gram tablet 1 g PO QAM RF: 0 lovastatin 40 mg tablet 80 mg PO HS RF: 0 omeprazole 40 mg capsule,delayed release(DR/EC) 80 mg PO BID RF: 0 Marijuana Card 1 inh inhalation TID PRN (Reason: Pain) RF: 0 Discharge Orders: Discharge Order (Routine); Ordered 06/23/21 Ordered By: Elizabeth Cruz/Other Patient Handouts: Prostate Cancer: Radical Prostatectomy, Discharge Instructions for Laser ... Admission Data Admit Date/Time: 06/21/21 15:19 Attending Provider: Neto Davenport Admit Provider: Neto Davenport Primary Care Provider: Hans Alston Other Interventions: Discharge Summary Assessment (RN) Last Done: 06/23/21 12:33 Coding Level of Care Code D/C DAY MANAGEMENT <30 MINS Diagnoses Prostate cancer C61
[2021-06-22] MEDS: oxyCODONE HCL IR 5 MG TAB (IMMEDIATE RELEASE) PO PRN ×2 (13:25→20:15)
[2021-06-22] MEDS: ONDANSETRON INJ 2 MG/ML 2 ML VIAL IV PRN (13:25)
--- NOTE | 2021-06-22 14:51 | Electrocardiogram Report ---
Test Reason : Blood Pressure : / mmHG Vent. Rate : 078 BPM Atrial Rate : 078 BPM P-R Int : 180 ms QRS Dur : 100 ms QT Int : 408 ms P-R-T Axes : 042 060 068 degrees QTc Int : 465 ms Poor data quality, interpretation may be adversely affected Normal sinus rhythm Normal ECG When compared with ECG of 05-APR-2018 15:22, No significant change was found Confirmed by Lenny Fraire ([id number]) on 06/22/2021 2:51:17 PM Referred By: Neto Davenport Confirmed By:Danny Fraire
[2021-06-22] MEDS: LOVASTATIN 20 MG TAB PO SCH (20:54)
[2021-06-22] MEDS: traZODone HCL 100 MG TAB PO SCH (20:55)
[2021-06-23] MEDS: HEPARIN SOD 5,000 UNIT/0.5 ML VIAL SQ SCH (07:28)
[2021-06-23] MEDS: SUCRALFATE 1 GM TAB PO SCH (07:29)
[2021-06-23] MEDS: FUROSEMIDE 20 MG TAB PO SCH (07:31)
[2021-06-23] MEDS: ESCITALOPRAM OXALATE 10 MG TAB PO SCH (07:31)
[2021-06-23] MEDS: LOSARTAN POTASSIUM 50 MG TAB PO SCH (07:31)
[2021-06-23] MEDS: amLODIPine BESYLATE 5 MG TAB PO SCH (07:31)
[2021-06-23] MEDS: CEROVITE ADV FORMULA TAB PO SCH (07:31)
[2021-06-23] MEDS: PANTOprazole 40 MG TAB PO SCH (07:32)
[2021-06-23] MEDS: MAGNESIUM OXIDE 400 MG TAB PO SCH ×2 (07:32→13:04)
[2021-06-23] MEDS: POTASSIUM CHLORIDE 10 MEQ TABCR PO SCH (07:32)
[2021-06-23] MEDS: oxyCODONE HCL IR 5 MG TAB (IMMEDIATE RELEASE) PO PRN (07:35)
--- NOTE | 2021-06-23 08:22 | Urology Progress Note ---
Date of Service June 23, 2021 Assessment & Plan (1) Prostate cancer: Plan: POD#2 s/p prostatectomy doing well this am if he continues to progress through lunch, plan for d/c home Admission and Anticipated Discharge Date Admission Date: June 21, 2021 Subjective doing much better this am no pain passed some flatus urine remains clear labs just drawn - not resulted yet Physical Exam Physical Exam: abd soft, not distended incisions appropriate urine clear Results & Data ([facility]) Vital Signs (Past 12 Hours) Vital Signs Temp Pulse Resp BP BP Pulse Ox 06/23/21 07:48 36.6 C 78 16 172/98 H 97 06/22/21 23:11 37.1 C 63 18 130/71 98 PG Care Time/CCT Total # of Minutes Spent Total Time Spent with Patient: Total time spent is greater than 50% in coordination of care (as documented) at patient's floor/unit and/or counseling patient: Coding Level of Care Code 47192 Subseq Hosp Care Lvl 2 Diagnoses Prostate cancer C61
[2021-06-23] MEDS: INSULIN ASPART 100 UNITS/ML 3 ML PEN SC SCH ×2 (08:49→13:03)
[2021-06-23 08:55] LABS: Basophils # (auto) 0.02 K/uL (0-0.2); Basophils % (auto) 0.2 %; Eosinophils # (auto) 0.12 K/uL (0-0.5); Eosinophils % (auto) 1.3 %; Hematocrit (blood only) 37.2 % (42-52); Hemoglobin 12.7 g/dL (14.0-18.0); Immature Granulocytes # (auto) 0.01 K/uL (0.00-0.02); Immature Granulocytes % (auto) 0.1 %; Lymphocytes % (auto) 13.2 %; Mean Corpuscular Hemoglobin 32.2 pg (25-34); Mean Corpuscular Hgb Conc 34.1 g/dL (32-36); Mean Corpuscular Volume 94.4 fL (80-100); Mean Platelet Volume 8.9 fL (7.4-10.4); Monocytes # (auto) 0.67 K/uL (0.11-0.59); Monocytes % (auto) 7.4 %; Neutrophils # (auto) 7.07 K/uL (1.4-6.5); Neutrophils % (auto) 77.8 %; Platelet Count 241 K/uL (130-400); RDW Coefficient of Variation 12.7 % (11.5-14.5); Red Blood Count 3.94 M/uL (4.7-6.1); White Blood Count 9.09 K/uL (4.8-10.8)
[2021-06-23 09:22] LABS: BUN Creatinine Ratio 15.5 (10-20); Creatinine Clr Calc Pharmacy 99.5 ml/min; Est GFR (African American) 103.3 ml/min; Est GFR (Non-African American) 89.1 ml/min; Potassium 3.6 mmol/L (3.5-5.1)
[2021-06-23] MEDS ORDERED: POLYETHYLENE (MIRALAX) 17 GM PACK PO PRN (11:39)
== END 2021-06-23 15:10 | disposition home or self-care (01) | DRG 708 ==
LOC: ASU 09:21 → 3N 15:19
DX: C61 Malignant neoplasm of prostate